=== PATIENT | male | born 1955 | race Caucasian/White ===

== ENCOUNTER 2017-04-13 08:26 | Day surgery (SDC) | payer MEDICARE, BC ==
[~2017-04-13 08:26] MED LIST: Sodium Chloride 0.9% 1,000 ML IV SCH
[2017-04-13] MEDS ORDERED: Sodium Chloride 0.9% 5 ML Syringe FLUSH PRN (09:00)
[2017-04-13] MEDS ORDERED: Lactated Ringers 1,000 ML IV SCH (09:00)
[2017-04-13 09:44] LABS: CHLORIDE,CL 103 mmol/L (98-115); SODIUM,NA 139 mmol/L (136-145)
[2017-04-13] MEDS ORDERED: Midazolam 1 MG/ML 2 ML SDV IV ONE (10:59)
[2017-04-13] MEDS ORDERED: Propofol 200 MG/20 ML SDV IV ONE (10:59)
[2017-04-13] MEDS ORDERED: fentaNYL 100 MCG/2 ML SDV IV ONE (10:59)
[2017-04-13] MEDS ORDERED: fentaNYL 100 MCG/2 ML SDV ONE (11:01)
[2017-04-13] MEDS ORDERED: Midazolam 1 MG/ML 2 ML SDV ONE (11:01)
[2017-04-13] MEDS ORDERED: Propofol 200 MG/20 ML SDV ONE ×3 (11:01→11:52)
[2017-04-13 13:06] VITALS: BP 148/86
--- NOTE | 2017-04-13 13:13 | PCM.PRNOTE ---
- Free Text/Narrative Note: PROCEDURE PERFORMED: Colonoscopy PRE-PROCEDURE DIAGNOSIS/INDICATION FOR PROCEDURE: Change in bowel movements, screening for colorectal cancer CONSENT: Informed consent was obtained prior to the procedure after discussion of the risks (including pain, bleeding, infection, perforation, adverse reaction to anesthesia, cardiovascular event), benefits and alternatives and expected outcomes were discussed with the patient. The patient expressed understanding and wished to proceed. Verbal consent given and consent form signed. PROCEDURAL PAUSE: Completed SEDATION: Per anesthesia DESCRIPTION OF PROCEDURE: Patient was placed in the left lateral decubitus position. After adequate sedation and anesthetic was administered, a rectal exam was performed revealing normal sphincter tone, nonenlarged prostate, and no external abnormalities. A lubricated Olympus Video Colonoscope was inserted into the rectum and air insufflation was performed. The colonoscope was advanced through the rectum, sigmoid, descending, transverse, and ascending colon without difficulties, though a large amount of thick stool was noted throughout the colon which required copious irrigation to clear. The cecum was reached and the ileocecal valve as well as the appendiceal orifice were identified and pictorially documented. After adequate visualization of the cecum , the scope was withdrawn, giving 360-degree views of the colonic mucosa and retroflexion was performed in the rectum with the following findings noted: Ileocecal valve: Normal Cecum: Normal Ascending colon: Normal Hepatic flexure: Normal Transverse colon: Normal Splenic flexure: Normal Descending colon: Normal Sigmoid colon: Normal Rectum: Grade II internal hemorrhoids without active bleeding The scope was straightened, air suction performed, and the scope withdrawn without complication. Preparation adequacy poor. IMPRESSION: Colonoscopy performed revealing internal hemorrhoids, but no polyps. PLAN: Recommend repeat colonoscopy in 10 years for colorectal cancer screening. Encourage increased fiber diet and bowel regimen to ensure 1-2 soft bowel movements per day.
== END 2017-04-13 13:25 | disposition home or self-care (01) ==
LOC: KA.SDS 08:26
PROVIDERS: ATTEND Family Medicine
DX: K64.1 Second degree hemorrhoids (principal); E11.9 Type 2 diabetes mellitus without complications; I10 Essential (primary) hypertension; G47.30 Sleep apnea, unspecified; E78.00 Pure hypercholesterolemia, unspecified; E66.9 Obesity, unspecified; Z68.43 Body mass index [BMI] 50.0-59.9, adult; Z88.0 Allergy status to penicillin; Z79.84 Long term (current) use of oral hypoglycemic drugs; Z79.899 Other long term (current) drug therapy; Z79.82 Long term (current) use of aspirin
CPT/HCPCS: 00810; 36415; 45378; 80048; 85025; 93005; J2250; J2704; J3010; J7030